=== PATIENT | female | born 1955 | race Caucasian/White ===

== ENCOUNTER → 2017-02-20 | Outpatient (CLI) | payer BC ==
[~2017-02-20] MED LIST: CRESTOR10 MG PO; EFFEXOR XR150 MG PO; EFFEXOR-XR75 MG PO; ESTRACE 0.5MG0.5 MG OR; LISINOPRIL HCTZ1 TAB PO; LORAZEPAM0.5 MG PO; NASONEX0.05 MG/AC NS; PREMARIN1.25 MG PO; PRILOSEC20 MG PO; VITAMIN B11000 MCG/M IM; VITAMIN B121000 MC1 PO; WELLBUTRIN SR200 MG PO; WELLBUTRIN XL150 MG PO
--- NOTE | 2017-02-20 10:12 | RADIOLOGY REPORT PS360 ---
PROCEDURE: 2-D M-mode and color Doppler study INDICATIONS FOR THE TEST: Chest pain COPD Heart Murmur Tobacco Smoking Palpitations Fatigue Syncope Edema HypertensionXDiabetes Mellitus Rheumatic Fever SOBXDOE Obesity Hyperlipidemia Family History HD Additional History ABN EKG PATIENT INFORMATION HEIGHT: 65 WEIGHT:226 GENDER: Female B/P:177/80 2-D/M-MODE INTERPRETATION: 2-D MEASUREMENTS OBSERVED VALUES IN CMS Right Ventricular Dimension (RVDd) 2.3 Interventricular Septum (Thickness)(IVsd) 1.1 Left Ventricular Internal Dimensions(LVIDd) 5.7 Left Ventricular Posterior Wall (Thickness)(LVPWd) 1.0 Aortic Root 2.8 Aortic Cusp Separation 1.8 Left Atrial Dimensions (LAD) 3.3 2D 1. Left atrium is normal size, left ventricle is normal size, left ventricle wall thickness is upper limit of the normal, there is preserved left ventricular systolic function, visually estimated ejection fraction 55% with no obvious regional wall motion abnormality. 2. The right atrium and right ventricle are normal size and contractility. 3. The aortic valve is minimally thickened and calcified, there is no aortic stenosis. 4. The mitral and tricuspid valve is structurally normal. 5. Pulmonic valve is not well visualized. 6. No significant pericardial effusion noted DOPPLER INTERROGATION: Doppler interrogation of the aortic mitral and tricuspid valvular presence of mild mitral and tricuspid regurgitation, tricuspid regurgitant jet velocity insufficient for calculation of the right ventricular systolic pressure. Diastolic parameters are within normal range. CONCLUSION: 1. Normal left ventricular size, preserved left ventricular systolic function, visually estimated ejection fraction 55% with no obvious regional wall motion abnormality, diastolic parameters are within normal range. 2. Mild mitral and tricuspid regurgitation. 3. No significant pericardial effusion noted.
--- NOTE | 2017-02-21 13:25 | RADIOLOGY REPORT PS360 ---
SPECT MYOCARDIAL PERFUSION SCAN, REST AND STRESS: EXERCISE STRESS: [facility] REVIEW QGS EF AND WALL MOTION EVALUATION: QPS - PERFUSION EVALUATION: HISTORY: DYSPNEA, ABN EKG PROCEDURE: Rest imaging performed after administration of10.30 millicuries Tc MIBI. Dose administered at6:15 a.m., with imaging thereafter. Stress imaging was then performed following5 minutes 15 seconds of exercise stress. The patient achieved a heart [id number] with projected heart rate of135 . Resting BP144/79 with stress 190/70. At maximum exercise stress,31.4 millicuries Tc MIBI administered at7 a.m. with imaging;55 minutes thereafter. FINDINGS: Perfusion Evaluation: The single slice spect images as well as the [facility] bull's-eye data summary were reviewed. Wall Motion and Ejection Fraction Evaluation: Gated SPECT review and analysis used to evaluate these features. There is a 67 % left ventricular ejection fraction. There seems to be good wall motion Patient exercised 5 minutes 15 seconds on standard breast protocol. No reported chest pain there was 1.[address] segment depression inferiorly and laterally Stress images reveal decreased activity in the anterior wall while rest images reveal persistent decreased but significantly improved. IMPRESSION: Reversible ischemia in the anterior wall with normal ejection fraction normal wall motion. High risk abnormal stress test
--- NOTE | 2017-02-21 13:25 | RADIOLOGY REPORT PS360 ---
SPECT MYOCARDIAL PERFUSION SCAN, REST AND STRESS: EXERCISE STRESS: [facility] REVIEW QGS EF AND WALL MOTION EVALUATION: QPS - PERFUSION EVALUATION: HISTORY: DYSPNEA, ABN EKG PROCEDURE: Rest imaging performed after administration of10.30 millicuries Tc MIBI. Dose administered at6:15 a.m., with imaging thereafter. Stress imaging was then performed following5 minutes 15 seconds of exercise stress. The patient achieved a heart [id number] with projected heart rate of135 . Resting BP144/79 with stress 190/70. At maximum exercise stress,31.4 millicuries Tc MIBI administered at7 a.m. with imaging;55 minutes thereafter. FINDINGS: Perfusion Evaluation: The single slice spect images as well as the [facility] bull's-eye data summary were reviewed. Wall Motion and Ejection Fraction Evaluation: Gated SPECT review and analysis used to evaluate these features. There is a 67 % left ventricular ejection fraction. There seems to be good wall motion Patient exercised 5 minutes 15 seconds on standard breast protocol. No reported chest pain there was 1.[address] segment depression inferiorly and laterally Stress images reveal decreased activity in the anterior wall while rest images reveal persistent decreased but significantly improved. IMPRESSION: Reversible ischemia in the anterior wall with normal ejection fraction normal wall motion. High risk abnormal stress test
== END ==
LOC: RAD 05:41
DX: R94.31 Abnormal electrocardiogram [ECG] [EKG] (principal); R06.09 Other forms of dyspnea
CPT/HCPCS: A9502